=== PATIENT | female | born 1985 | race Caucasian/White ===

== ENCOUNTER 2017-04-21 16:16 | Emergency (ER) | payer MEDICAID ==
[~2017-04-21] VITALS: Ht 157.5 cm; Wt 137.0 kg
[~2017-04-21 16:16] MED LIST: METHYLDOPA500 M1 PO; PRENATAL1 TA2 PO
[2017-04-21 16:49] VITALS: BP 155/96
[2017-04-21] MEDS: NACL 0.9% 1,000 ML IV ONE (17:23)
[2017-04-21] MEDS: PROCHLORPERAZINE 10 MG/2 ML VIAL IVP ONE (17:29)
[2017-04-21] MEDS: ONDANSETRON 4 MG/2 ML VIAL IVP ONE (17:29)
[2017-04-21 18:54] VITALS: BP 124/84
== END 2017-04-21 18:53 | disposition home or self-care (01) ==
LOC: MED 16:16
DX: N93.8 Other specified abnormal uterine and vaginal bleeding (principal); I10 Essential (primary) hypertension
CPT/HCPCS: 36415; 70450; 76830; 80053; 81001; 81025; 84484; 85025; 87086; 93005; 96361; 96374; 99285; J2405; J7030; Q0092

== ENCOUNTER 2017-09-29 10:40 | Emergency (ER) | payer MEDICAID ==
[~2017-09-29] VITALS: Ht 165.1 cm; Wt 146.7 kg
[~2017-09-29 10:40] MED LIST changes: +METH500T22 PO; -METHYLDOPA500 M1 PO; +PREN-103 PO; -PRENATAL1 TA2 PO
[2017-09-29 10:51] VITALS: BP 127/77
--- NOTE | 2017-09-29 11:00 | NUR ---
PATIENT PRESENTS TO ED WITH C/O DIZZINESS WITH N/D, SOB, HEAD ACHE 7/10 X 3 DAYS. AAOX4 WITH EVEN AND STEADY GAIT; LUNGS CLEAR BL; HR EVEN AND REGULAR; PT DENIES ANY FEVER, CP, SOB, OR COUGH AT THIS TIME; SKIN IS PINK/WARM/DRY;PATIENT STATES HEADACHE OF 6/10 AT THIS TIME; VSS; PATIENT POSITIONED FOR COMFORT; HOB ELEVATED; BEDRAILS UP X2; BED DOWN. ER MD MADE AWARE OF PT STATUS.
[2017-09-29] MEDS ORDERED: ONDANSETRON 4 MG ODT PO ONE (11:30)
[2017-09-29] MEDS ORDERED: ASPIRIN 81 MG TAB.CHEW PO ONE (11:30)
[2017-09-29] MEDS ORDERED: MECLIZINE 25 MG TAB PO ONE (11:30)
[2017-09-29] MEDS ORDERED: ACETAMINOPHEN 325 MG TAB PO ONE (11:30)
[2017-09-29 12:01] LABS: EOSINOPHILS # (AUTO) 0.1 K/uL (0-0.4); EOSINOPHILS % (AUTO) 2.1 % (0.0-4.0); MONOCYTES # (AUTO) 0.5 K/uL (0.8-1.0); RED CELL DISTRIBUTION WIDTH 14.7 % (11.6-13.7); WHITE BLOOD COUNT (AUTO) 5.8 K/uL (4.8-10.8)
[2017-09-29 12:13] LABS: PROTHROMBIN TIME 10.2 secs (10.8-13.4)
[2017-09-29 12:24] LABS: ANION GAP 13.6 (8-16); CARBON DIOXIDE 26.2 mmol/L (21-32); CREATININE 0.8 mg/dL (0.6-1.3); POTASSIUM 3.8 mmol/L (3.5-5.1)
[2017-09-29 12:30] LABS: ALBUMIN 2.9 g/dL (3.4-5.0); TOTAL BILIRUBIN 0.3 mg/dL (0.0-1.0)
--- NOTE | 2017-09-29 12:30 | NUR ---
NOT ABLE TO CORRECT URINE AT THIS TIME, ED MD AWARE.
[2017-09-29 12:43] LABS: BASOPHILS # (AUTO) 0.2 K/uL (0.00-0.22); BASOPHILS % (AUTO) 4.1 % (0.0-2.0); HEMATOCRIT 37.8 % (36-48); HEMOGLOBIN 11.8 g/dL (12.0-16.0); LYMPHOCYTES # (AUTO) 1.3 K/uL (2.5-16.5); LYMPHOCYTES % (AUTO) 23.1 % (20.5-51.1); MEAN CORPUSCULAR HEMOGLOBIN 25 pg (27-31); MEAN CORPUSCULAR HGB CONC 31 g/dL (33-37); MEAN CORPUSCULAR VOLUME 79 fL (80-94); MONOCYTES % (AUTO) 8.1 % (1.7-9.3); NEUTROPHILS # (AUTO) 3.7 K/uL (1.8-7.7); NEUTROPHILS % (AUTO) 62.6 % (42.2-75.2); PLATELET COUNT (AUTO) 263 K/uL (140-450); RED BLOOD CELL COUNT(AUTO) 4.76 MIL/uL (4.20-5.40)
[2017-09-29 13:25] VITALS: BP 112/70
--- NOTE | 2017-09-29 13:25 | NUR ---
Patient discharged with v/s stable. Written and verbal after care instructions given and explained. Patient alert, oriented and verbalized understanding of instructions. Ambulatory with steady gait. All questions addressed prior to discharge. ID band removed. Patient advised to follow up with PMD. Rx of MECLIZINE, ZOFRAN given. Patient educated on indication of medication including possible reaction and side effects. Opportunity to ask questions provided and answered.
== END 2017-09-29 13:25 | disposition home or self-care (01) ==
LOC: MED 10:40
DX: R42 Dizziness and giddiness (principal); R51 Headache; R07.9 Chest pain, unspecified; I10 Essential (primary) hypertension
CPT/HCPCS: 36415; 71045; 80053; 83880; 84484; 85025; 85610; 85730; 93005; 99285; J8597; Q0092; S0119

== ENCOUNTER 2018-12-19 01:58 | Emergency (ER) | payer SELFPAY ==
[~2018-12-19] VITALS: Ht 165.1 cm; Wt 145.1 kg
[~2018-12-19 01:58] MED LIST changes: -METH500T22 PO; +[UNRECOGNIZED DRUG - CODE] PO
[2018-12-19 02:01] VITALS: BP 114/69
--- NOTE | 2018-12-19 02:04 | NUR ---
TO LOBBY A/W BED AMBULATORY
--- NOTE | 2018-12-19 02:49 | NUR ---
PT TAKEN TO BED 12.
--- NOTE | 2018-12-19 03:15 | NUR ---
33 YO F BIB SELF PRESENTS TO ED C/O 03/28 SORE THROAT X 3 DAYS. DENIES COUGH OR ANY OTHER RESPIRATORY S/SX. PT STATES SHE HAD A FEVER YESTERDAY. PT IS AFEBRILE AT THIS TIME. -- PT ALERT, CALM, COOPERATIVE. ANSWERING QUESTIONS APPROPRIATELY. BEHAVIOR APPROPRIATE. -- SKIN PINK, WARM, DRY. BREATHING EVEN, UNLABORED. PMH-- DENIES RX-- DENIES
--- NOTE | 2018-12-19 03:28 | NUR ---
RAPID STREP COMPLETED. (-) AWAITING RESULT FOR THROAT CX.
[2018-12-19] MEDS ORDERED: DEXAMETHASONE 10 MG/ML VIAL PO ONE (03:55)
[2018-12-19] MEDS ORDERED: KETOROLAC 30 MG/ML VIAL IM ONE (03:55)
--- NOTE | 2018-12-19 04:10 | NUR ---
PT RECEIVED 10 MG PO DECADRON AND 30 MG IM TORADOL FOR 03/28 SORE THROAT.
--- NOTE | 2018-12-19 04:20 | NUR ---
PT REPORTS 4/10 THROAT PAIN. MEDICATIONS EFFECTIVE.
[2018-12-19 04:26] VITALS: BP 114/69
--- NOTE | 2018-12-19 04:26 | NUR ---
Patient discharged with v/s stable. Written and verbal after care instructions given and explained. Patient alert, oriented and verbalized understanding of instructions. Ambulatory with steady gait. All questions addressed prior to discharge. ID band removed. Patient advised to follow up with PMD. Rx of Lenox and Naprosyn given. Patient educated on indication of medication including possible reaction and side effects. Opportunity to ask questions provided and answered.
== END 2018-12-19 04:26 | disposition home or self-care (01) ==
LOC: MED 01:58
DX: J02.9 Acute pharyngitis, unspecified (principal); I10 Essential (primary) hypertension; Z79.899 Other long term (current) drug therapy
CPT/HCPCS: 87081; 96372; 99283; J1100; J1885

== ENCOUNTER 2022-04-07 09:13 | Emergency (ER) | payer MEDICAID ==
[~2022-04-07] VITALS: Ht 165.1 cm; Wt 117.9 kg
[2022-04-07 09:50] VITALS: BP 185/94
[2022-04-07 12:38] LABS: BASOPHILS % (AUTO) 0.4 % (0.0-2.0); EOSINOPHILS # (AUTO) 0.1 K/uL (0-0.4); EOSINOPHILS % (AUTO) 1.4 % (0.0-4.0); HEMATOCRIT 39.6 % (36-48); LYMPHOCYTES # (AUTO) 2.3 K/uL (2.5-16.5); MEAN CORPUSCULAR HEMOGLOBIN 27 pg (27-31); MEAN CORPUSCULAR HGB CONC 33 g/dL (33-37); MEAN CORPUSCULAR VOLUME 82.2 fL (80-94); MONOCYTES # (AUTO) 0.7 K/uL (0.8-1.0); MONOCYTES % (AUTO) 6.8 % (1.7-9.3); NEUTROPHILS # (AUTO) 7.1 K/uL (1.8-7.7); NEUTROPHILS % (AUTO) 69.4 % (42.2-75.2); PLATELET COUNT (AUTO) 273 K/uL (140-450); RED BLOOD CELL COUNT(AUTO) 4.81 MIL/uL (4.20-5.40); RED CELL DISTRIBUTION WIDTH 14.3 % (11.6-13.7); WHITE BLOOD COUNT (AUTO) 10.3 K/uL (4.8-10.8)
[2022-04-07 13:13] LABS: ALBUMIN 3.3 g/dL (3.4-5.0); ANION GAP 14.1 (8-16); CARBON DIOXIDE 25.5 mmol/L (21-32); CREATININE 0.7 mg/dL (0.6-1.3); POTASSIUM 4.6 mmol/L (3.5-5.1); TOTAL BILIRUBIN 0.4 mg/dL (0.0-1.0)
[2022-04-07 13:58] LABS: APPEARANCE,URINE CLEAR (CLEAR); BILIRUBIN,URINE NEGATIVE (NEGATIVE); BLOOD, URINE 3+ (NEGATIVE); COLOR,URINE YELLOW (YELLOW); LEUKOCYTE ESTERASE ,URINE NEGATIVE (NEGATIVE); NITRITE, URINE NEGATIVE (NEGATIVE); PH,URINE 7.5 (5.0-9.0); UGLUCOSE NEGATIVE (NEGATIVE)
[2022-04-07] MEDS ORDERED: KETOROLAC 30 MG/ML VIAL IM ONE (14:10)
[2022-04-07] MEDS ORDERED: IBUP-2213 PO (14:28)
[2022-04-07 14:39] LABS: RBC,URINE 20-50 /HPF (0-5)
[2022-04-07] MEDS ORDERED: ACET-9882 PO (14:39)
[2022-04-07 14:40] LABS: WBC,URINE 0-5 /HPF (0-5)
[2022-04-07 14:55] VITALS: BP 114/59
== END 2022-04-07 14:55 | disposition home or self-care (01) ==
LOC: MED 09:13
DX: N83.201 Unspecified ovarian cyst, right side (principal); I10 Essential (primary) hypertension; Z79.899 Other long term (current) drug therapy; Z98.84 Bariatric surgery status
CPT/HCPCS: 36415; 76856; 80053; 81001; 81025; 83690; 85025; 87086; 99284

== ENCOUNTER 2023-07-31 10:53 | Emergency (ER) | payer MEDICAID ==
[~2023-07-31] VITALS: Ht 162.6 cm; Wt 107.0 kg
[~2023-07-31 10:53] MED LIST changes: +ACET-9882 PO
[2023-07-31 11:12] VITALS: BP 117/74; PULSE 95; RESP 16; TEMP 98.2; O2SAT 97
[2023-07-31] MEDS ORDERED: DEXAMETHASONE 4 MG/ML VIAL PO ONE (11:40)
[2023-07-31] MEDS ORDERED: DICYCLOMINE HCL LIQUID 20 MG, ALUMINUM HYD/MAG/SIMETHICONE 30 ML, LIDOCAINE VISCOUS 2% ... PO ONE ×3 (11:40)
[2023-07-31] MEDS ORDERED: KETOROLAC 30 MG/ML VIAL IM ONE (11:40)
[2023-07-31] MEDS ORDERED: DICYCLOMINE HCL LIQUID 10 MG/5 ML UDC ONE (11:52)
[2023-07-31] MEDS ORDERED: ALUMINUM HYD/MAG/SIMETHICONE 30 ML UDC ONE (11:52)
[2023-07-31 12:25] LABS: FLU A ANTIGEN negative (NEGATIVE); FLU B ANTIGEN negative (NEGATIVE)
[2023-07-31] MEDS ORDERED: AMOX500C25 PO (12:52)
[2023-07-31] MEDS ORDERED: BENZ-300 PO (12:52)
[2023-07-31] MEDS ORDERED: IBUP-2213 PO (12:52)
[2023-07-31] MEDS ORDERED: FAMO-90 PO (12:52)
== END 2023-07-31 13:10 | disposition home or self-care (01) ==
LOC: MED 10:53
DX: J02.9 Acute pharyngitis, unspecified (principal); K21.9 Gastro-esophageal reflux disease without esophagitis; Z20.822 Contact with and (suspected) exposure to COVID-19; I10 Essential (primary) hypertension; Z98.890 Other specified postprocedural states; Z79.899 Other long term (current) drug therapy; Z79.1 Long term (current) use of non-steroidal anti-inflammatories (NSAID); Z79.2 Long term (current) use of antibiotics
CPT/HCPCS: 87081; 87426; 87804; 96372; 99283; J1100; J1885